=== PATIENT | female | born 1975 | race Caucasian/White ===

== ENCOUNTER → 2018-10-22 | Outpatient (CLI) | payer OTHER ==
[~2018-10-22] MED LIST: Multivitamin1 EAC1 PO; Pepcid20 MG PO
[2018-10-24 15:06] LABS: HPV 16 Negative (Negative); HPV 18 Negative (Negative); HPV OTHER HR TYPES Negative (Negative)
== END | disposition home or self-care (01) ==
LOC: LAB SHORT 12:00 → LAB 12:00
PROVIDERS: Internal Medicine
DX: Z01.419 Encounter for gynecological examination (general) (routine) without abnormal findings (principal)
CPT/HCPCS: 87624; G0123

== ENCOUNTER → 2022-05-17 | Outpatient (CLI) | payer OTHER | LOC: LAB SHORT 08:03 → PLD 08:03 → LAB 08:03 | DX: L98.9 Disorder of the skin and subcutaneous tissue, unspecified (principal) | CPT/HCPCS: 88305 ==

== ENCOUNTER → 2023-07-17 | Outpatient (CLI) | payer OTHER ==
[2023-07-19 10:53] LABS: DOUBLE-STRANDED DNA IGG ELISA 5 IU (0-24)
[2023-07-23 21:33] LABS: SMITH (ENA) ANTIBODY, IGG 2 AU/mL (0-40); SMITH/RNP (ENA) AB, IGG 2 Units (0-19)
== END | disposition home or self-care (01) ==
LOC: LAB SHORT 12:41 → LAB 12:41
PROVIDERS: Family Medicine
DX: R53.83 Other fatigue (principal)
CPT/HCPCS: 82306; 84443; 86225; 86235

== ENCOUNTER → 2023-12-05 | Outpatient (CLI) | payer OTHER | LOC: LAB 07:30 → LAB SHORT 07:30 | DX: R21 Rash and other nonspecific skin eruption (principal) | CPT/HCPCS: 88312 ==